=== PATIENT | male | born 1960 | race Caucasian/White ===

== ENCOUNTER 2017-10-24 07:41 | Emergency (ER) | payer MEDICAID ==
[~2017-10-24] VITALS: Ht 6122.6 cm; Wt 91.0 kg
[~2017-10-24 07:41] MED LIST: ASCO-103 PO; FOL0.4T; HYDR-565 PO; METH4TAB81 PO; MILK200C4 PO; MULT-1179 PO
[2017-10-24 08:21] LABS: BASOPHILS % (AUTO) 0.1 % (0-1); EOSINOPHILS % (AUTO) 0.3 % (0-6); HEMATOCRIT 41.2 % (42.0-52.0); HEMOGLOBIN 13.6 g/dl (14.0-17.9); LYMPHOCYTES # (AUTO) 0.5 X10'3 (1.1-4.8); LYMPHOCYTES % (AUTO) 4.7 % (21-51); MEAN CORPUSCULAR HEMOGLOBIN 28.5 PG (27.0-31.0); MEAN CORPUSCULAR HGB CONC 33.1 % (33.0-36.5); MEAN CORPUSCULAR VOLUME 86.1 FL (78-98); MEAN PLATELET VOLUME 6.7 FL (7.4-10.4); MONOCYTES # (AUTO) 0.7 X10'3 (0-0.9); MONOCYTES % (AUTO) 5.9 % (2-12); NEUTROPHILS # (AUTO) 10.1 X10'3 (1.8-7.7); PLATELET COUNT 202 X10'3 (140-440); RED BLOOD COUNT 4.78 X10'6 (4.70-6.10); RED CELL DISTRIBUTION WIDTH 13.9 % (11.5-14.5); WHITE BLOOD COUNT 11.4 X10'3 (4.5-11.0)
[2017-10-24 08:32] LABS: CLARITY,URINE Clear (Clear); COLOR,URINE Yellow (Yellow); GLUCOSE, URINE Negative (Neg); KETONES,URINE Trace mg/dl (Neg); LEUKOCYTE ESTERASE ,URINE Negative (Neg); NITRITES, URINE Negative (Neg); OCCULT BLOOD,URINE Negative (Neg); PH,URINE 5.5 (4.8-8.0); PROTEIN,URINE Trace mg/dl (Neg)
[2017-10-24 08:34] LABS: UA COLLECTION TYPE CLN CATCH MIDSTREAM
[2017-10-24] MEDS ORDERED: normal saline 1000ML IV soln IVB ONE (08:35)
[2017-10-24 08:39] LABS: BACTERIA,URINE NONE SEEN /HPF (Neg); COARSE GRANULAR CAST 0-3 /LPF (NEGATIVE); MUCUS STRANDS MODERATE /LPF (Neg); RBC,URINE NONE SEEN /HPF (0-2); SQUAMOUS EPITHELIAL CELL,UR FEW /LPF (FEW); WBC,URINE 0-4 /HPF (0-4)
[2017-10-24 08:43] LABS: TOTAL CELLS COUNTED 100
[2017-10-24 08:44] LABS: PLATELET ESTIMATE NORMAL; TOXIC GRANULATION 1+; TOXIC VACUOLATION FEW
[2017-10-24] MEDS ORDERED: iohexol 300mg/ml 100ml inj. ONE (08:44)
[2017-10-24] MEDS ORDERED: ampicillin/sulbac 3gm/NS 100ml 100 ML IV ONE (08:45)
[2017-10-24 08:51] LABS: ALANINE AMINOTRANSFERASE 18 U/L (12-78); ALBUMIN 3.6 G/DL (3.4-5.0); ALBUMIN/GLOBULIN RATIO 0.9 (1.1-1.5); ALKALINE PHOSPHATASE 103 IU/L (46-116); ANION GAP 8 (8-16); ASPARTATE AMINO TRANSFERASE 19 U/L (10-37); BILIRUBIN,TOTAL 0.7 MG/DL (0.1-1.0); BLOOD UREA NITROGEN 12 MG/DL (7-18); BUN/CREATININE RATIO 10.4 (5.4-32.0); CALCIUM 8.9 MG/DL (8.5-10.1); CHLORIDE 104 MMOL/L (99-107); CREATININE 1.15 MG/DL (0.60-1.10); GLUCOSE 133 MG/DL (70-104); POTASSIUM 4.1 MMOL/L (3.5-5.1); SODIUM 137 MMOL/L (135-145); TOTAL CARBON DIOXIDE 24.9 MMOL/L (24-32); TOTAL PROTEIN 7.8 G/DL (6.4-8.2); eGFR 66 ML/MIN
[2017-10-24 09:48] LABS: PARTIAL THROMBOPLASTIN TIME 30 SECONDS (22-32); PROTHROMBIN TIME 10.7 SECONDS (9.0-12.0)
[2017-10-24] MEDS ORDERED: AMOX-422 PO (09:55)
[2017-10-24] MEDS ORDERED: IBUP-1984 PO (09:55)
[2017-10-24 10:55] VITALS: BP 148/84
== END 2017-10-24 10:57 | disposition home or self-care (01) ==
LOC: ER 07:43
DX: J35.8 Other chronic diseases of tonsils and adenoids (principal); R59.1 Generalized enlarged lymph nodes; H92.03 Otalgia, bilateral; R05 Cough; K21.9 Gastro-esophageal reflux disease without esophagitis; F32.9 Major depressive disorder, single episode, unspecified
CPT/HCPCS: 36415; 70491; 71010; 80053; 81001; 83605; 84145; 84484; 85025; 85610; 85730; 87040; 93005; 96365; 99285; J0295; J7030; Q9967

== ENCOUNTER 2017-11-17 11:31 | Emergency (ER) | payer MEDICAID ==
[~2017-11-17] VITALS: Ht 185.4 cm; Wt 91.0 kg
[~2017-11-17 11:31] MED LIST changes: +IBUP-1984 PO
[2017-11-17 11:38] VITALS: BP 115/78
[2017-11-17] MEDS ORDERED: cephalexin 250mg capsule PO ONE (12:20)
[2017-11-17] MEDS ORDERED: CEPH-572 PO (12:27)
== END 2017-11-17 12:50 | disposition home or self-care (01) ==
LOC: ER 11:33
DX: L03.011 Cellulitis of right finger (principal); K21.9 Gastro-esophageal reflux disease without esophagitis; Z98.890 Other specified postprocedural states; Z79.899 Other long term (current) drug therapy
CPT/HCPCS: 99283

== ENCOUNTER 2022-03-18 07:52 | Emergency (ER) | payer MEDICAID ==
[~2022-03-18] VITALS: Ht 185.4 cm; Wt 95.0 kg
[~2022-03-18 07:52] MED LIST changes: -FOL0.4T; +FOLI0.4T14; +HYDR-4353 PO; -HYDR-565 PO; -IBUP-1984 PO
[2022-03-18 07:56] VITALS: BP 120/78
[2022-03-18] MEDS ORDERED: bacitracin 15gm ointment TP ONE (08:35)
== END 2022-03-18 09:07 | disposition home or self-care (01) ==
LOC: ER 07:53
DX: S91.211A Laceration without foreign body of right great toe with damage to nail, initial encounter (principal); K21.9 Gastro-esophageal reflux disease without esophagitis; F32.A Depression, unspecified; Z86.69 Personal history of other diseases of the nervous system and sense organs; Z86.19 Personal history of other infectious and parasitic diseases; Z98.890 Other specified postprocedural states; Z72.89 Other problems related to lifestyle; Z59.00 Homelessness unspecified; Z79.899 Other long term (current) drug therapy; W19.XXXA Unspecified fall, initial encounter; Y93.89 Activity, other specified; Y92.89 Other specified places as the place of occurrence of the external cause; Y99.8 Other external cause status
CPT/HCPCS: 99281

== ENCOUNTER 2024-06-08 06:09 | Outpatient (CLI) | payer MEDICAID ==
[2024-06-08] MEDS ORDERED: LIDOcaine 1% 30ml preserv. free vial ONE (06:31)
[2024-06-08] MEDS ORDERED: LIDOcaine 1%/PF 5ML 10 MG/ML VIAL ONE (06:31)
[2024-06-08] MEDS ORDERED: GADOTERATE MEGLUMINE 7.5 MMOL/15 ML VIAL IV ONE (06:31)
[2024-06-08] MEDS ORDERED: iohexol 300 MG/1 ML 50ml polymer ONE (06:31)
== END 2024-06-08 23:59 | disposition home or self-care (01) ==
LOC: RAD 06:09 → EDSTATUS 07:00 → RAD 23:59
PROVIDERS: ATTEND Family Medicine Sports Medicine
DX: S43.431A Superior glenoid labrum lesion of right shoulder, initial encounter (principal); M75.111 Incomplete rotator cuff tear or rupture of right shoulder, not specified as traumatic; M19.011 Primary osteoarthritis, right shoulder; X58.XXXA Exposure to other specified factors, initial encounter; Y93.89 Activity, other specified; Y92.89 Other specified places as the place of occurrence of the external cause; Y99.8 Other external cause status
CPT/HCPCS: 23350; 73222; 77002; A9575; J3490; Q9967; 73040

== ENCOUNTER 2025-02-03 08:20 | Emergency (ER) | payer MEDICAID ==
[~2025-02-03] VITALS: Ht 185.4 cm; Wt 65.1 kg
[2025-02-03 09:07] VITALS: TEMP 98.4
[2025-02-03] MEDS ORDERED: ALBU8HFA INH (10:08)
[2025-02-03] MEDS ORDERED: PRED10TA23 PO (10:08)
[2025-02-03] MEDS ORDERED: AZIT500T2 PO (10:08)
[2025-02-03] MEDS: ipratropium/albuterol 3ml nebule NEB ONE (10:14)
[2025-02-03 10:15] VITALS: PULSE 81; RESP 18; O2SAT 98
[2025-02-03 10:21] VITALS: PULSE 93; RESP 18; O2SAT 100
[2025-02-03] MEDS: dexamethasone sod phosphate 10mg/ml inj PO STA ×2 (10:24→10:35)
[2025-02-03 10:36] VITALS: BP 118/99; PULSE 90; RESP 16; O2SAT 100
== END 2025-02-03 10:50 | disposition home or self-care (01) ==
LOC: ER 08:20
DX: J20.9 Acute bronchitis, unspecified (principal); F17.200 Nicotine dependence, unspecified, uncomplicated; K21.9 Gastro-esophageal reflux disease without esophagitis; F32.A Depression, unspecified; F10.90 Alcohol use, unspecified, uncomplicated; Y90.9 Presence of alcohol in blood, level not specified; Z79.899 Other long term (current) drug therapy; Z59.00 Homelessness unspecified
CPT/HCPCS: 71045; 94640; 99283; J1100; 94760